=== PATIENT | male | born 1985 | race Caucasian/White ===

== ENCOUNTER → 2018-01-04 | Day surgery (SDC) | payer OTHER ==
--- NOTE | 2018-01-03 18:21 | History & Physical Pre-Op ---
General Information and HPI History of Present Illness: Patient presents for evaluation of a pilonidal cyst. It has been present for 6 or 7 years. The original onset was that of an abscess requiring drainage in the emergency room while he was living in [place]. Since then it has intermittently become inflamed and spontaneously drained. He states the occurrences are once a year. Most recently it drained 2 weeks ago it is improving after topical treatment. No fevers chills or sweats. Allergies/Medications Allergies: Coded Allergies: No Known Allergies (01/03/18) Past History Surgical History Pertinent Surgical History: pilonidal abscess drainage Past Family/Social History Psychosocial History Smoking Status: Current Everyday Smoker ETOH Use: occasional use Illicit Drug Use: marijuana Review of Systems Review of Systems: Patient reports no fatigue, no fever, no night sweats, no significant weight gain, no significant weight loss, and no exercise intolerance. He reports no abnormal moles, no jaundice, no hives, no eczema, and no rashes. He reports no swollen glands and no neck stiffness. He reports no cough, no wheezing, no shortness of breath, and no coughing up blood. He reports no chest pain, no arm pain on exertion, no shortness of breath when walking, no shortness of breath when lying down, no palpitations, and no known heart murmur. He reports normal appetite, no abdominal pain, no vomiting, no vomiting blood, no bloating, no diarrhea, no belching, no constipation, no regurgitation, and no rectal bleeding. He reports no incontinence, no difficulty urinating, no hematuria, and no increased frequency. He reports no muscle aches, no muscle weakness, no arthralgias/joint pain, and no back pain. Exam & Diagnostic Data Last 24 Hrs of Vital Signs/I&O Intake & Output 01/03 1600 01/03 0800 01/03 0000 Intake Total Output Total Balance Patient 240 lb Weight Physical Exam: Patient is a 32-year-old male. Constitutional: General Appearance: healthy-appearing, well-nourished, and well- developed. Level of Distress: no acute distress. Ambulation: ambulating normally. Head: Head: normocephalic and atraumatic. Cardiovascular: Heart Auscultation: regular rate and rhythm. Lungs: Respiratory effort: no dyspnea. Auscultation: good air movement. Back: Thoracolumbar Appearance: normal curvature. Skin: Inspection and palpation: no rash, lesions, ulcer, induration, nodules, jaundice, or abnormal nevi and tattoo and good turgor; Multiple midline pilonidal pits in the supragluteal cleft. There is fibrous tract/sinus to the right of the midline. 3 cm superiorly there is a 4 cm subcutaneous cyst with expressible serous/purulence.. Musculoskeletal:: Extremities: no cyanosis, edema, varicosities, or palpable cord. Motor Strength and Tone: normal tone and motor strength. Joints, Bones, and Muscles: no contractures, malalignment, tenderness, or bony abnormalities and normal movement of all extremities. Assessment/Plan Assessment/Plan: 1. Pilonidal cyst without abscess - recommend excision with local advancement flap. preop abx to reduce inflammation. L05.91: Pilonidal cyst without abscess Augmentin 875 mg-125 mg tablet - Take 1 tablet(s) every 12 hours by oral route for 7 days. Qty: 14 tablet(s) Refills: 1 Pharmacy: [id number] Discussion Notes Discussed the pathophysiology of pilonidal disease. Discussed infection control measures and surgical resection strategies to prevent recurrence. Discussed resection with closure and it's associated outcomes--30% recurrence. As Ranked By This Provider Problem List: 1. Pilonidal cyst
[~2018-01-04] VITALS: Ht 190.5 cm; Wt 108.9 kg
--- NOTE | 2018-01-04 09:45 | Operative Report ---
Operative/Inv Procedure Report Surgery Date: 01/04/18 Name of Procedure: 1. Excision of extensive pilonidal cyst 2. Local rotational flap closure Pre-Operative Diagnosis: Pilonidal cyst Post-Operative Diagnosis: Same Estimated Blood Loss: less than 50ml Surgeon/General Superintendent: Lenin Plaza MD Anesthesia: local monitored anesthesi Drains: Pepin Specimens: Pilonidal cyst Operative/Procedure Note Note: After consent patient brought to the operating room and laid prone. He was sedated and is supragluteal region was prepped and draped. There is a large area of pilonidal cyst with intervening tract measuring 4 cm. There was fortified midline pits in the supragluteal cleft. The entire area spanned a distance of 20 cm. I elected to make to "D" shaped excisions, one over the midline pits and cleft, the other over the cyst. There was a long segment of fistulous tract intervening and the skin bridge there was preserved. The entire area was infiltrated with a cocktail local anesthesia. Began at the gluteal cleft and excised the pits in the midline. Subcutaneous tissues were dissected with cautery. I then dissected the fistulous tract free. A longitudinal incision was made in the intervening segment to allow exposure, but no skin was resected there. I then created a second D-shaped incision superiorly over the sacrum midline. This was performed to allow excision of the cyst. The entire area was then resected en bloc and passed off the field. It appeared that the best way to close these areas was to create a local rotational flap with the intervening skin bridge. This would allow that skin to be rotated superiorly to cover the defect where the cyst was excised. D-shaped flap on the left side with then be elevated and brought over to close the cleft defect. Bilateral local advancement flaps were then created with cautery. The intervening skin segment was then used as a rotational flap to close the upper midline wound. The T-shaped excision at that side was changed to a triangular shaped excision to allow better skin apposition. We then rotated the skin flap superiorly and fixed it with interrupted 3-0 nylon sutures. The inferior based the flap was then closed with interrupted 3-0 nylon sutures in a vertical mattress fashion. In the intervening segments interrupted sutures were placed as well. Prior to completion of the closure, a 3/8 inch Huber drain was brought through a separate stab incision and tunneled through the wound to allow for drainage. Bacitracin ointment was applied and a sterile dressing placed. Sponge and needle counts are correct. CC: Serjio PATTONCorrina
== END ==
LOC: STS 12-14 07:00
DX: L05.91 Pilonidal cyst without abscess (principal)
CPT/HCPCS: 88304; J0131; J1885; J2250